=== PATIENT | male | born 1965 | race Caucasian/White ===

== ENCOUNTER → 2017-10-04 | Outpatient (CLI) | payer OTHER ==
[~2017-10-04] MED LIST: ARI2 PO; CEP500 PO; LOSA50TA72 PO; PANT40TA65 PO; VENL150C61 PO
--- NOTE | 2017-10-04 12:24 | EKG ---
FACILITY: [facility] - [place] PATIENT NAME: ANAHI GALE : [id number] MR: [id number] V: [id number] EXAM DATE: ORDERING PHYSICIAN: TOMAS MONTES TECHNOLOGIST: David Parsons Reason : PREOP Blood Pressure : / mmHG Vent. Rate : 077 BPM Atrial Rate : 077 BPM P-R Int : 188 ms QRS Dur : 086 ms QT Int : 286 ms P-R-T Axes : 069 024 064 degrees QTc Int : 323 ms Normal sinus rhythm Nonspecific T wave abnormality Abnormal ECG Confirmed by TOMAS JAMES ([id number]) on 10/04/2017 3:13:30 PM Referred By: TOMAS MONTES Confirmed By:TOMAS JAMES
== END ==
LOC: RESP 11:40
PROVIDERS: ATTEND Anesthesiology
DX: Z01.810 Encounter for preprocedural cardiovascular examination (principal); S83.241A Other tear of medial meniscus, current injury, right knee, initial encounter; R94.31 Abnormal electrocardiogram [ECG] [EKG]
CPT/HCPCS: 93005

== ENCOUNTER 2018-10-03 08:42 | Emergency (ER) | payer OTHER ==
[~2018-10-03 08:42] MED LIST changes: -LOSA50TA72 PO; +LOSA50TA80 PO
[2018-10-03] MEDS ORDERED: PROP120C31 PO (08:47)
[2018-10-03] MEDS ORDERED: ABILIF5PT PO (08:47)
[2018-10-03] MEDS ORDERED: VENL150C61 PO (08:47)
[2018-10-03] MEDS ORDERED: cloNIDine HCL 0.1 MG TAB PO ONE (08:55)
--- NOTE | 2018-10-03 08:59 | ER Report ---
History and Physical Time Seen By MD: 08:55 Hx. of Stated Complaint: HIGH BLOOD PRESSURE, HEADACHE FOR 2 WEEKS HPI/ROS CHIEF COMPLAINT: Hypertension HISTORY OF PRESENT ILLNESS: 53-year-old male on Effexor and propranolol for hypertension comes emergency Department today with a diastolic of 117. Patient states the last 3-4 weeks he started [place] trying to lose weight he was on a different hypertensive medication switched to propranolol 34 weeks ago been checking his blood pressure no notices elevated diastolic blood pressure 1:15 to 120. Patient is completely asymptomatic with chest pain shortness of breath naus ea vomiting diarrhea fever chills notices blood pressure increased also after he exercises as follow up today with his primary care doc REVIEW OF SYSTEMS: Respiratory: No cough, no dyspnea. Cardiovascular: No chest pain, no palpitations. Gastrointestinal: No vomiting, no abdominal pain. Musculoskeletal: No back pain. Remainder of the 14 system rev: Yes Allergies: Coded Allergies: AGATHA Inhibitors (Unverified Adverse Reaction, Mild, cough, 10/03/18) Home Meds Reported Medications Venlafaxine Hcl (EFFEXOR XR) 150 Mg Cap.er.24h, 150 MG PO QDAY 10/03/18 Aripiprazole (ABILIFY) 5 Mg Tablet, 5 MG PO QDAY, #10 TAB 10/03/18 Propranolol Hcl (PROPRANOLOL HCL) 120 Mg Cap.sa.24h, 120 MG PO DAILY 10/03/18 Pantoprazole Sodium (PANTOPRAZOLE SODIUM) 40 Mg Tablet.dr, 40 MG PO QDAY, TAB.SR 09/16/14 Discontinued Reported Medications Losartan Potassium (LOSARTAN POTASSIUM) 50 Mg Tablet, 50 MG PO QDAY 09/16/14 Aripiprazole (ABILIFY) 2 Mg Tablet, 2.5 MG PO QDAY, TAB 09/16/14 Venlafaxine Hcl (EFFEXOR XR) 150 Mg Cap.er.24h, 300 MG PO QDAY 09/16/14 Reviewed Nurses Notes: Yes Old Medical Records Reviewed: Yes Hx Smoking: No Constitutional Vital Sign - Last 24 Hours 10/03/18 08:45 Temp 98.1 Pulse 67 Resp 20 B/P (MAP) 181/118 Pulse Ox 90 O2 Delivery Room Air Physical Exam General Appearance: The patient is alert, has no immediate need for airway protection and no current signs of toxicity. [ ] Eyes: Pupils equal and round no injection. Respiratory: Chest is non tender, lungs are clear to auscultation. Cardiac: regular rate and rhythm [ ] Gastrointestinal: Abdomen is soft and non tender, no masses, bowel sounds normal. Musculoskeletal: Neck: Neck is supple and non tender. Extremities have full range of motion and are non tender. Skin: No rashes or lesions. [ ] DIFFERENTIAL DIAGNOSIS: After history and physical exam differential diagnosis was considered for hypertensive urgency hypertensive emergency hypertensive crisis Medical Decision Making Data Points Result Diagram: 10/03/18 0857 10/03/18 0857 Laboratory Hematology Test 10/03/18 08:57 Red Blood Count 5.81 M/uL (4.00-5.60) Mean Corpuscular Volume 91.5 fL (80.0-96.0) Mean Corpuscular Hemoglobin 30.9 pg (26.0-33.0) Mean Corpuscular Hemoglobin Concent 33.7 g/dL (32.0-36.0) Red Cell Distribution Width 13.2 % (11.5-14.5) Mean Platelet Volume 7.4 fL (7.2-11.1) Neutrophils (%) (Auto) 65.2 % (39.4-72.5) Lymphocytes (%) (Auto) 25.4 % (17.6-49.6) Monocytes (%) (Auto) 7.3 % (4.1-12.4) Eosinophils (%) (Auto) 1.1 % (0.4-6.7) Basophils (%) (Auto) 1.0 % (0.3-1.4) Nucleated RBC Relative Count (auto) 0.1 /100WBC Neutrophils # (Auto) 5.0 K/uL (2.0-7.4) Lymphocytes # (Auto) 2.0 K/uL (1.3-3.6) Monocytes # (Auto) 0.6 K/uL (0.3-1.0) Eosinophils # (Auto) 0.1 K/uL (0.0-0.5) Basophils # (Auto) 0.1 K/uL (0.0-0.1) Nucleated RBC Absolute Count (auto) 0.01 K/uL Sodium Level 139 mmol/L (137-145) Potassium Level 4.1 mmol/L (3.5-5.0) Chloride Level 108 mmol/L (98-107) Carbon Dioxide Level 24 mmol/L (22-30) Blood Urea Nitrogen 19 mg/dl (9-21) Creatinine 1.50 mg/dl (0.66-1.25) Glomerular Filtration Rate Calc 49.0 Random Glucose 115 mg/dl (75-110) Calcium Level 9.6 mg/dl (8.4-10.2) Total Bilirubin 0.6 mg/dl (0.2-1.3) Aspartate Amino Transf (AST/SGOT) 36 U/L (0-35) Alanine Aminotransferase (ALT/SGPT) 75 U/L (0-56) Alkaline Phosphatase 64 U/L (0-126) Troponin I < 0.012 ng/ml Total Protein 7.4 g/dl (6.3-8.2) Albumin 4.7 g/dl (3.5-5.0) Chemistry Test 10/03/18 08:57 White Blood Count 7.7 k/uL (4.5-11.0) Red Blood Count 5.81 M/uL (4.00-5.60) Hemoglobin 17.9 g/dL (14.0-18.0) Hematocrit 53.2 % (42.0-52.0) Mean Corpuscular Volume 91.5 fL (80.0-96.0) Mean Corpuscular Hemoglobin 30.9 pg (26.0-33.0) Mean Corpuscular Hemoglobin Concent 33.7 g/dL (32.0-36.0) Red Cell Distribution Width 13.2 % (11.5-14.5) Platelet Count 288 K/uL (150-450) Mean Platelet Volume 7.4 fL (7.2-11.1) Neutrophils (%) (Auto) 65.2 % (39.4-72.5) Lymphocytes (%) (Auto) 25.4 % (17.6-49.6) Monocytes (%) (Auto) 7.3 % (4.1-12.4) Eosinophils (%) (Auto) 1.1 % (0.4-6.7) Basophils (%) (Auto) 1.0 % (0.3-1.4) Nucleated RBC Relative Count (auto) 0.1 /100WBC Neutrophils # (Auto) 5.0 K/uL (2.0-7.4) Lymphocytes # (Auto) 2.0 K/uL (1.3-3.6) Monocytes # (Auto) 0.6 K/uL (0.3-1.0) Eosinophils # (Auto) 0.1 K/uL (0.0-0.5) Basophils # (Auto) 0.1 K/uL (0.0-0.1) Nucleated RBC Absolute Count (auto) 0.01 K/uL Glomerular Filtration Rate Calc 49.0 Calcium Level 9.6 mg/dl (8.4-10.2) Total Bilirubin 0.6 mg/dl (0.2-1.3) Aspartate Amino Transf (AST/SGOT) 36 U/L (0-35) Alanine Aminotransferase (ALT/SGPT) 75 U/L (0-56) Alkaline Phosphatase 64 U/L (0-126) Troponin I < 0.012 ng/ml Total Protein 7.4 g/dl (6.3-8.2) Albumin 4.7 g/dl (3.5-5.0) ED Course/Re-evaluation ED Course ED clinical course 53-year-old male here with elevated blood pressure diastolic 117.2 of clonidine and his blood pressure diastolic is now 98 he is asymptomatic he does have a slight bump in his creatinine I advised him to follow-up with his primary care his appointment in the next couple of hours advised to continue medications as prescribed diagnosis hypertensive urgency Decision to Disposition Date: Oct 03, 2018 Decision to Disposition Time: 09:53 Depart Departure Latest Vital Signs Vital Signs Date Time Temp Pulse Resp B/P (MAP) Pulse Ox O2 Delivery O2 Flow Rate FiO2 10/03/18 08:45 98.1 67 20 181/118 90 Room Air Impression: Primary Impression: Hypertensive urgency Condition: Improved Disposition: HOME OR SELF-CARE Referrals: TOMAS PROCTOR MD (PCP) Upon Returning Home Patient Instructions: Hypertension (DC) ALIS KIM MD Oct 03, 2018 08:59
[2018-10-03 09:13] LABS: PLATELET COUNT, AUTOMATED 288 K/uL (150-450)
--- NOTE | 2018-10-03 09:38 | EKG ---
FACILITY: [facility] - [place] PATIENT NAME: ANAHI GALE : [id number] MR: [id number] V: [id number] EXAM DATE: ORDERING PHYSICIAN: ALIS KIM TECHNOLOGIST: Test Reason : chest pain Blood Pressure : / mmHG Vent. Rate : 063 BPM Atrial Rate : 063 BPM P-R Int : 194 ms QRS Dur : 090 ms QT Int : 420 ms P-R-T Axes : 027 -01 059 degrees QTc Int : 429 ms Normal sinus rhythm Normal ECG When compared with ECG of 04-OCT-2017 11:49, Relatively unchanged Confirmed by SHARRON CUEVAS ([id number]) on 10/03/2018 4:35:15 PM Referred By: Confirmed By:SHARRON CUEVAS
[2018-10-03 09:52] VITALS: BP 123/95
== END 2018-10-03 10:02 | disposition home or self-care (01) ==
LOC: ER 08:45
DX: I16.0 Hypertensive urgency (principal)
CPT/HCPCS: 82040; 82247; 82310; 82374; 82435; 82565; 82947; 84075; 84132; 84155; 84295; 84450; 84460; 84484; 84520; 85025; 93005; 99284

== ENCOUNTER 2018-11-06 09:50 | Emergency (ER) | payer OTHER ==
[~2018-11-06 09:50] MED LIST changes: +ABILIF5PT PO; +PROP120C31 PO
[2018-11-06] MEDS ORDERED: LOSA100T75 PO (10:03)
--- NOTE | 2018-11-06 10:10 | ER Report ---
History and Physical Time Seen By MD: 10:09 Hx. of Stated Complaint: siatic pain primarily on the right side. denies any recent injury but did take up crossfit 1 month ago. states the numbness and tingling is spreading down the left leg as well now. wants to make sure its nothing more serious HPI/ROS CHIEF COMPLAINT: sciatica pain HISTORY OF PRESENT ILLNESS: This is a 53 year old male. Started crossfit recently and now having right sciatica pain, slowly worsening, now with pain and numbness down leg to toes. Worsens with movement, very stiff. Some pain into lumbar area and to left side now. No fevers or chills noted. No dysuria or urinary incontinence. Did urinate 6 times last night which is unusual for him. N o abdominal pain. No weakness, but inhibited motion from pain. No bowel incontinence. No saddle anesthesia. No history of injury noted. No prior problems like this. Allergies: Coded Allergies: AGATHA Inhibitors (Unverified Adverse Reaction, Mild, cough, 10/03/18) Home Meds Active Scripts Hydrocodone Bit/Acetaminophen (HYDROCODON-ACETAMINOPHEN 5-325) 1 Each Tablet, 1 EACH PO Q4H PRN for PAIN, #12 TAB 0 Refills Prov:LOUIS JUSTICE MD 11/06/18 Cyclobenzaprine Hcl (CYCLOBENZAPRINE HCL) 10 Mg Tablet, 10 MG PO Q8H PRN for MUSCLE SPASMS, #20 TAB 0 Refills Prov:LOUIS JUSTICE MD 11/06/18 Reported Medications Losartan Potassium (LOSARTAN POTASSIUM) 100 Mg Tablet, 100 MG PO QDAY 11/06/18 Venlafaxine Hcl (EFFEXOR XR) 150 Mg Cap.er.24h, 150 MG PO QDAY 10/03/18 Aripiprazole (ABILIFY) 5 Mg Tablet, 5 MG PO QDAY, #10 TAB 10/03/18 Pantoprazole Sodium (PANTOPRAZOLE SODIUM) 40 Mg Tablet.dr, 40 MG PO QDAY, TAB.SR 09/16/14 Discontinued Reported Medications Propranolol Hcl (PROPRANOLOL HCL) 120 Mg Cap.sa.24h, 120 MG PO DAILY 10/03/18 Reviewed Nurses Notes: Yes Hx Smoking: No Constitutional Vital Sign - Last 24 Hours 11/06/18 11/06/18 11/06/18 11/06/18 09:50 09:54 09:56 10:00 Temp 97.5 Pulse ??? 78 Resp 20 B/P (MAP) 166/106 (126) 166/106 139/100 (113) Pulse Ox 93 O2 Delivery Room Air 11/06/18 11/06/18 11/06/18 11/06/18 10:20 10:30 10:50 11:00 Pulse 71 67 B/P (MAP) 140/103 (115) 148/109 (122) Pulse Ox 91 90 11/06/18 11/06/18 11/06/18 11/06/18 11:05 11:30 11:35 12:00 Pulse 72 69 B/P (MAP) 151/112 (125) 148/104 (119) Pulse Ox 95 93 11/06/18 12:05 Pulse 68 Pulse Ox 92 Physical Exam General Appearance: The patient is alert. Acute distress due to pain. Cardiovascular: Regular rate and rhythm. No edema, normal peripheral perfusion. Gastrointestinal: Abdomen is soft and non tender. Nondistended. Normal active bowel sounds. No CVA tenderness. Neurological: Alert and oriented x3. Strength is equal between right and left, no deficits or weakness noted. Strait leg raise is negative ipsilateral and contralateral. Skin: Warm and dry. No rashes. Musculoskeletal: Tender directly over the sciatic area on the right. No lumbar spine pain with palpation. Full range of motion. DIFFERENTIAL DIAGNOSIS: After history and physical exam, differential diagnosis was considered for right sciatica pain. Medical Decision Making Data Points Result Diagram: 11/06/18 1051 11/06/18 1051 Laboratory Hematology Test 11/06/18 10:51 11/06/18 11:15 Red Blood Count 5.44 M/uL (4.00-5.60) Mean Corpuscular Volume 90.4 fL (80.0-96.0) Mean Corpuscular Hemoglobin 30.9 pg (26.0-33.0) Mean Corpuscular Hemoglobin Concent 34.1 g/dL (32.0-36.0) Red Cell Distribution Width 13.1 % (11.5-14.5) Mean Platelet Volume 7.2 fL (7.2-11.1) Neutrophils (%) (Auto) 70.8 % (39.4-72.5) Lymphocytes (%) (Auto) 19.1 % (17.6-49.6) Monocytes (%) (Auto) 8.4 % (4.1-12.4) Eosinophils (%) (Auto) 1.0 % (0.4-6.7) Basophils (%) (Auto) 0.7 % (0.3-1.4) Nucleated RBC Relative Count (auto) 0.1 /100WBC Neutrophils # (Auto) 5.3 K/uL (2.0-7.4) Lymphocytes # (Auto) 1.4 K/uL (1.3-3.6) Monocytes # (Auto) 0.6 K/uL (0.3-1.0) Eosinophils # (Auto) 0.1 K/uL (0.0-0.5) Basophils # (Auto) 0.1 K/uL (0.0-0.1) Nucleated RBC Absolute Count (auto) 0.01 K/uL Erythrocyte Sedimentation Rate 6 mm/HOUR (0-20) Sodium Level 138 mmol/L (137-145) Potassium Level 4.2 mmol/L (3.5-5.0) Chloride Level 104 mmol/L (98-107) Carbon Dioxide Level 27 mmol/L (22-30) Blood Urea Nitrogen 16 mg/dl (9-21) Creatinine 1.00 mg/dl (0.66-1.25) Glomerular Filtration Rate Calc > 60.0 Random Glucose 101 mg/dl (75-110) Calcium Level 9.7 mg/dl (8.4-10.2) Total Bilirubin 0.8 mg/dl (0.2-1.3) Aspartate Amino Transf (AST/SGOT) 58 U/L (0-35) Alanine Aminotransferase (ALT/SGPT) 96 U/L (0-56) Alkaline Phosphatase 66 U/L (0-126) C-Reactive Protein 0.8 mg/dl (<1.0) Total Protein 7.1 g/dl (6.3-8.2) Albumin 4.5 g/dl (3.5-5.0) Urine Color Yellow Urine Clarity Clear Urine pH 7.0 pH (4.8-9.5) Urine Specific [place] 1.017 Urine Protein Negative mg/dL (NEGATIVE) Urine Glucose (UA) Negative mg/dL (NEGATIVE) Urine Ketones Negative mg/dL (NEGATIVE) Urine Blood Negative (NEGATIVE) Urine Nitrite Negative (NEGATIVE) Urine Bilirubin Negative (NEGATIVE) Urine Urobilinogen Negative mg/dL (0.2-1.9) Urine Leukocyte Esterase Negative (NEGATIVE) Urine RBC <1 /HPF (0-2/HPF) Urine WBC 1 /HPF (0-5/HPF) Urine Squamous Epithelial Cells None /LPF (</=FEW) Urine Bacteria Negative /HPF (NONE-FEW) Urine Mucus Few /HPF (NONE-FEW) Chemistry Test 11/06/18 10:51 11/06/18 11:15 White Blood Count 7.5 k/uL (4.5-11.0) Red Blood Count 5.44 M/uL (4.00-5.60) Hemoglobin 16.8 g/dL (14.0-18.0) Hematocrit 49.2 % (42.0-52.0) Mean Corpuscular Volume 90.4 fL (80.0-96.0) Mean Corpuscular Hemoglobin 30.9 pg (26.0-33.0) Mean Corpuscular Hemoglobin Concent 34.1 g/dL (32.0-36.0) Red Cell Distribution Width 13.1 % (11.5-14.5) Platelet Count 257 K/uL (150-450) Mean Platelet Volume 7.2 fL (7.2-11.1) Neutrophils (%) (Auto) 70.8 % (39.4-72.5) Lymphocytes (%) (Auto) 19.1 % (17.6-49.6) Monocytes (%) (Auto) 8.4 % (4.1-12.4) Eosinophils (%) (Auto) 1.0 % (0.4-6.7) Basophils (%) (Auto) 0.7 % (0.3-1.4) Nucleated RBC Relative Count (auto) 0.1 /100WBC Neutrophils # (Auto) 5.3 K/uL (2.0-7.4) Lymphocytes # (Auto) 1.4 K/uL (1.3-3.6) Monocytes # (Auto) 0.6 K/uL (0.3-1.0) Eosinophils # (Auto) 0.1 K/uL (0.0-0.5) Basophils # (Auto) 0.1 K/uL (0.0-0.1) Nucleated RBC Absolute Count (auto) 0.01 K/uL Erythrocyte Sedimentation Rate 6 mm/HOUR (0-20) Glomerular Filtration Rate Calc > 60.0 Calcium Level 9.7 mg/dl (8.4-10.2) Total Bilirubin 0.8 mg/dl (0.2-1.3) Aspartate Amino Transf (AST/SGOT) 58 U/L (0-35) Alanine Aminotransferase (ALT/SGPT) 96 U/L (0-56) Alkaline Phosphatase 66 U/L (0-126) C-Reactive Protein 0.8 mg/dl (<1.0) Total Protein 7.1 g/dl (6.3-8.2) Albumin 4.5 g/dl (3.5-5.0) Urine Color Yellow Urine Clarity Clear Urine pH 7.0 pH (4.8-9.5) Urine Specific [place] 1.017 Urine Protein Negative mg/dL (NEGATIVE) Urine Glucose (UA) Negative mg/dL (NEGATIVE) Urine Ketones Negative mg/dL (NEGATIVE) Urine Blood Negative (NEGATIVE) Urine Nitrite Negative (NEGATIVE) Urine Bilirubin Negative (NEGATIVE) Urine Urobilinogen Negative mg/dL (0.2-1.9) Urine Leukocyte Esterase Negative (NEGATIVE) Urine RBC <1 /HPF (0-2/HPF) Urine WBC 1 /HPF (0-5/HPF) Urine Squamous Epithelial Cells None /LPF (</=FEW) Urine Bacteria Negative /HPF (NONE-FEW) Urine Mucus Few /HPF (NONE-FEW) Urinalysis Test 11/06/18 11:15 Urine Color Yellow Urine Clarity Clear Urine pH 7.0 pH (4.8-9.5) Urine Specific [place] 1.017 Urine Protein Negative mg/dL (NEGATIVE) Urine Glucose (UA) Negative mg/dL (NEGATIVE) Urine Ketones Negative mg/dL (NEGATIVE) Urine Blood Negative (NEGATIVE) Urine Nitrite Negative (NEGATIVE) Urine Bilirubin Negative (NEGATIVE) Urine Urobilinogen Negative mg/dL (0.2-1.9) Urine Leukocyte Esterase Negative (NEGATIVE) Urine RBC <1 /HPF (0-2/HPF) Urine WBC 1 /HPF (0-5/HPF) Urine Squamous Epithelial Cells None /LPF (</=FEW) Urine Bacteria Negative /HPF (NONE-FEW) Urine Mucus Few /HPF (NONE-FEW) ED Course/Re-evaluation ED Course Urinalysis and blood work unremarkable. Recommended increasing his Ibuprofen dose to 800mg three times a day. Adding in Flexeril and as needed Lortab. Starting physical therapy this week and keeping his appointment with orthopedic surgery. Reviewed red flag symptoms that would indicate the need to come back for re-evaluation and emergent MRI (Weakness, bowel incontinence, urinary incontinence, saddle anesthesia, fevers/chills). Decision to Disposition Date: Nov 06, 2018 Decision to Disposition Time: 11:50 Depart Departure Latest Vital Signs Vital Signs Date Time Temp Pulse Resp B/P (MAP) Pulse Ox O2 Delivery O2 Flow Rate FiO2 11/06/18 12:05 68 92 11/06/18 12:00 148/104 (119) 11/06/18 09:56 97.5 20 Room Air Impression: Primary Impression: Sciatica of right side Condition: Improved Disposition: HOME OR SELF-CARE Referrals: TOMAS PROCTOR MD (PCP) New Scripts Hydrocodone Bit/Acetaminophen (HYDROCODON-ACETAMINOPHEN 5-325) 1 Each Tablet 1 EACH PO Q4H PRN for PAIN, #12 TAB 0 Refills Prov: LOUIS JUSTICE MD 11/06/18 Cyclobenzaprine Hcl (CYCLOBENZAPRINE HCL) 10 Mg Tablet 10 MG PO Q8H PRN for MUSCLE SPASMS, #20 TAB 0 Refills Prov: LOUIS JUSTICE MD 11/06/18 Patient Instructions: Sciatica (ED) Additional Instructions: Ibuprofen 200mg tablets, take 4 tablets every 6-8 hours for pain. Take Flexeril 10mg, one every 8 hours as needed for pain. Lortab 5/325, one every 4 hours as needed for severe pain. Keep you appointment with orthopedic surgery this week. Call to start physical therapy this week LOUIS JUSTICE MD Nov 06, 2018 10:10
[2018-11-06 10:57] LABS: PLATELET COUNT, AUTOMATED 257 K/uL (150-450)
[2018-11-06] MEDS ORDERED: LOR5/325 PO (11:51)
[2018-11-06] MEDS ORDERED: CYCL10TA29 PO (11:51)
[2018-11-06 12:00] VITALS: BP 148/104
== END 2018-11-06 12:12 | disposition home or self-care (01) ==
LOC: ER 10:15
DX: M54.31 Sciatica, right side (principal)
CPT/HCPCS: 36415; 81001; 82040; 82247; 82310; 82374; 82435; 82565; 82947; 84075; 84132; 84155; 84295; 84450; 84460; 84520; 85025; 85651; 86140; 99282